=== PATIENT | female | born 1975 | race Caucasian/White ===

== ENCOUNTER 2025-03-13 10:11 | Outpatient (CLI) | payer MEDICAID ==
--- NOTE | 2025-03-13 12:12 | RADIOLOGY REPORT ---
CLINICAL HISTORY: PAIN IN LEFT ANKLE AND JOINTS OF LEFT FOOT TECHNIQUE: Multisequence multiplanar MRI images of the left ankle were obtained without contrast. COMPARISON: None FINDINGS: BONES/JOINTS: No acute fracture or focal marrow contusion. No osteochondral defect or significant chondromalacia. No significant joint effusion. TENDONS: Tibialis posterior, flexor digitorum longus, and flexor hallucis longus tendons are intact. There is artifact from prior postsurgical changes along the tendon sheath of the peroneus brevis and longus tendons at their distal retromalleolar and proximal inframalleolar course. There is mild peroneal tenosynovitis and Tendinosis. No tear demonstrated. Tibialis anterior, extensor hallucis longus, and extensor digitorum longus tendons are intact. Achilles tendon is intact with no significant tendinosis or peritendinitis. LIGAMENTS: Deltoid ligament complex is intact. Spring ligament complex is intact. Postsurgical changes along the expected course of the anterior talofibular ligament consistent with lateral ligament reconstruction, with associated artifact. There is an anchor in place at the lateral aspect of the body of the talus involving the attachment site of the anterior talofibular ligament. There is edema and indistinctness of the fibers of the anterior talofibular ligament near its fibular attachment, may be partly due to sequelae of postsurgical changes, although findings are suspicious for partial tear at the fibular attachment, with poorly visualized ligament fibers at the attachment site. There are anchors at the lateral malleolus near the attachment site of the anterior talofibular ligament. Syndesmotic ligaments are intact. Calcaneofibular ligament is intact. PLANTAR FASCIA: Unremarkable. No significant thickening or edema. SINUS TARSI: Unremarkable. No significant edema. MUSCLES: Unremarkable. No significant atrophy. OTHER: No other significant findings. IMPRESSION: 1. Postsurgical changes of lateral ligament reconstruction as described above. Indistinctness of the fibers of the anterior talofibular ligament near its fibular attachment site, suspected partial tear. 2. Postsurgical changes along the course of the peroneal tendons. There is tendinosis and mild tenosynovitis of the peroneus longus and brevis tendons without visualized tear. 3. Additional findings as described above.
== END 2025-03-13 23:59 | disposition home or self-care (01) ==
LOC: MRI02 10:11
PROVIDERS: ATTEND Podiatrist Foot & Ankle Surgery
DX: M25.572 Pain in left ankle and joints of left foot (principal)
CPT/HCPCS: 73721